=== PATIENT | female | born 1970 | race Two or more races ===

== ENCOUNTER → 2021-11-25 | Outpatient (CLI) | payer OTHER ==
[2016-03-31 19:01] VITALS: BP 151/99
[~2021-11-25] MED LIST: DICY10CA53 PO; ONDA4TAB10 SL
--- NOTE | 2021-11-25 16:17 | KCIC ---
Digital Mammogram Bilateral History: Routine screening Technique: 2-D digital CC and MLO views were obtained. CAD - computer aided detection was utilize d. Comparison: None. This is a baseline exam. Findings: Breast Tissue Density B : There are scattered areas of fibroglandular density There is an asymmetry in the upper posterior right breast on the MLO view that measures about 1 cm an d is located approximately 10 cm posterior to the nipple. There are 2 small asymmetries in the left upper breast on the MLO view at posterior depth, about 8 cm nipple. The one of these is seen on the CC view in approximately the 12:00 position. There are no ma lignant appearing calcifications, or areas of architectural distortion. Impression: There are small asymmetries in both breasts. Further evaluation with a 3-D diagnostic bilateral mammo gram is recommended. If these do not represent benign lymph nodes, targeted breast ultrasound would a lso be useful. Assessment: BI-RADS 0. Incomplete. Recommendation: Diagnostic bilateral mammogram, if needed targeted bilateral breast ultrasound. The patient will be contacted with results and asked to schedule for additional imaging. The patient will receive a letter with the results in the mail. Patient information will be entered into the mamm ography reminder system with a target recall date for the next mammogram. A reminder letter will be g enerated. Electronically signed by: Dorina Torres MD (11/25/2021 4:15 PM) [email or web address]
== END ==
LOC: KCIC MAMMO 12:24
PROVIDERS: ATTEND Family Medicine
DX: Z12.31 Encounter for screening mammogram for malignant neoplasm of breast (principal)
CPT/HCPCS: 77067